=== PATIENT | male | born 1975 | race Caucasian/White ===

== ENCOUNTER 2020-11-22 09:10 | Emergency (ER) | payer OTHER ==
[~2020-11-22] VITALS: Ht 175.3 cm; Wt 75.3 kg
[2020-11-22 11:22] VITALS: BP 135/81
== END 2020-11-22 11:24 | disposition home or self-care (01) ==
LOC: ED 10:29
DX: J06.9 Acute upper respiratory infection, unspecified (principal); R06.02 Shortness of breath; F17.210 Nicotine dependence, cigarettes, uncomplicated; R94.31 Abnormal electrocardiogram [ECG] [EKG]
CPT/HCPCS: 71045; 93005; 99283